=== PATIENT | male | born 1960 | race Caucasian/White ===

== ENCOUNTER → 2018-01-10 | Outpatient (CLI) | payer BC ==
[2018-01-10] MEDS: IOHEXOL 300 MG/ML 100ML VIAL. IV (11:47)
[2018-01-10 13:00] LABS: ISTAT CREATININE 0.7 mg/dL (0.7-1.3)
== END | disposition home or self-care (01) ==
LOC: KCIC CT 11:08
DX: H92.01 Otalgia, right ear (principal)
CPT/HCPCS: 82565; Q9967

== ENCOUNTER → 2021-03-27 | Outpatient (CLI) | payer BC ==
[~2021-03-27] MED LIST: BUPR300T92 PO; DEXL60CA2 PO; ESZO3TAB28 PO; FOLI0.8C PO; INSU100I13 SQ; INSU100V31 SQ; INSU100V6 SQ; LIPITOR80 MG PO; LORA0.5T96 PO; METF500T16 PO; QUET100T4 PO; QUET400T52 PO; SEMA0.25 SQ; TAMS0.4C97 PO
--- NOTE | 2021-03-27 15:47 | PDOC1 ---
INITIAL PAIN CONSULT DATE OF SERVICE: DOS: DATE: 03/27/21 TIME: 15:37 CHIEF COMPLAINT: Chief Complaint: Perineal pain HISTORY OF PRESENT ILLNESS: 60-year-old male presents history of pain since September 2020 following a perineal cystectomy which he describes as about the size of a golf ball. Patient reports that he has had pain ever since the excision and the pain is still present in the right side of the perineum between the anus and the scrotum. Patient describes it as sharp and stabbing constant changes during the day with activity worse with walking standing sitting wakes him from sleep occasionally does not affect his bowel bladder control or his ability to walk but is painful with walking and standing. Patient has had no current therapies for this he does take Motrin [id number] which does not seem to help much the pain is been getting worse with time gradually but still painful since the surgery in September 2020. Patient rates his disability rating from the pain 0- 10 10 being the worst is a 5 with family home responsibilities recreation and social activity occupational activities 7/behavior, 2 with self-care activities and 5 with life support activities. She did have MRI scan of the pelvis with and without contrast showing some postsurgical change in the right perineum but no evidence of soft tissue mass fluid collection or sinus tract at the postsurgical site. PAST MEDICAL HISTORY: PMH: Type 2 diabetes, hyperlipidemia, obstructive sleep apnea, gastroesophageal reflux, kidney stones, depression and anxiety PREVIOUS SURGERIES: Past Surgical Hx: Right cataract extraction, right rotator cuff repair, sinus surgery x2, left torn retina repair, right knee Fracture, bilateral heel surgeries, umbilical herniorrhaphy, tonsillectomy, perineal cyst excision September 2020 CURRENT MEDICATIONS: Current Meds: Active Scripts Medications Dose Route/Sig Max Daily Dose Days Date Category Dexilant (Dexlansoprazole) 60 Mg Cap.drLokeshmp 1 Cap PO DAILY 30 03/27/21 Reported Lipitor (Atorvastatin Calcium) 80 Mg Tablet 1 Tab PO DAILY 03/27/21 Reported Flomax (Tamsulosin Hcl) 0.4 Mg Cap.er.24h 1 Cap PO DAILY 03/27/21 Reported Lantus Solostar (Insulin Glargine,Hum.rec.anlog) 100 Unit/1 Ml Insuln.pen 30 Unit SQ QHS 03/27/21 Reported Humalog (Insulin Lispro) 100 Unit/1 Ml Vial 40 Unit SQ TID 03/27/21 Reported Ozempic (Semaglutide) 0.25 Mg/0.2 Ml Pen.injctr 0.25 Mg SQ WEEKLY 03/27/21 Reported Ativan (Lorazepam) 0.5 Mg Tablet 0.5 Mg PO DAILY PRN 03/27/21 Reported Folic Acid 0.8 Mg Capsule 1 Mg PO DAILY 03/27/21 Reported Bupropion Xl (Bupropion Hcl) 300 Mg Tab.er.24h 1 Tab PO DAILY 03/27/21 Reported Seroquel (Quetiapine Fumarate) 100 Mg Tablet 1 Tab PO QHS 03/27/21 Reported Quetiapine Fumarate ER (Quetiapine Fumarate) 400 Mg Tab.er.24h 150 Mg PO DAILY 03/27/21 Reported Lunesta (Eszopiclone) 3 Mg Tablet 1 Tab PO PRN QHS PRN MDD 1 Tablet(s) 30 03/27/21 Reported Metformin Hcl 500 Mg Tablet 500 Mg PO BIDWMEALS 01/10/18 Reported ALLERGIES; Allergies: Coded Allergies: Iodinated Contrast Media (Verified Allergy, Severe, 03/27/21) pt states he had a reaction with throat swelling during a scan but for an MRI he did not react with the contrast. 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 REVIEW OF SYSTEMS: ROS: Positive for those items mentioned in history of present illness, all systems are reviewed, otherwise negative ,and are complete full and well-documented on patient's chart. PHYSICAL EXAM: VS: Blood pressure is 157/85 pulse 99 respiration 16 temperature 98.2 F height is 5 foot 8 inches weight is 216 pounds PE: PHYSICAL EXAMINATION: GENERAL: The patient is awake, alert, oriented, appropriate, very pleasant in demeanor HEENT: Shows normocephalic, atraumatic. Extraocular movements are intact and symmetrical. Oral cavity: Mucous membranes moist and pink. Dentition is intact. NECK: Shows anterior throat supple without palpable lymphadenopathy noted. Swallow reflex symmetrical. CHEST: Shows normal on inspection. Breath sounds are clear bilaterally. HEART: Shows S1, S2 clear. No murmurs auscultated. ABDOMEN: Soft, nontender, nondistended, obese. No palpable organomegaly is noted. No rebound or guarding demonstrated. PERINEUM: Shows well-healed surgical scar to the right of midline at the base of the scrotum, tenderness with palpation directly fairly well demarcated proximally 2 cm diameter. No masses are palpated no radiation of pain is demonstrated. Left perineum shows no masses no tenderness no other abnormalities. BACK: Shows spine grossly in the midline. Normal-appearing cervical lordotic curvature. There is slightly increased thoracic kyphosis, some minor flattening of the lumbar lordotic curvature. EXTREMITIES: Lower extremities show deep tendon reflexes 2+ in the patellar and tendo calcaneus tendons. Motor exam is 5 on a scale of 5 with right dorsiflexion, extension, quadriceps and hamstring flexion and 5/5 on the left. Peripheral pulses are 2+ posterior tibial. No peripheral edema is noted bilaterally. SKIN: Shows warm and dry, good turgor. No edema. No sores, rashes or bruising throughout. IMPRESSION: Impression: 60-year-old male with history of postoperative pain following perineal cystectomy September 2020. Type 2 diabetes Hyperlipidemia Esophageal reflux Obstructive sleep apnea Depression anxiety Plan: Options were discussed with the patient including conservative medical management is physical therapies and interventional techniques. We discussed a peripheral nerve block at the incision site in the right perineum using description as well as anatomical models to describe the procedure. Patient understands and like to proceed. We will wait for preauthorization with patient's insurance provider for peripheral nerve block in the right perineum status post right peroneal cystectomy with chronic postoperative pain. Once preauthorization is obtained, will have patient return for procedure at that time. CRISTIANA WINTERS MD Mar 27, 2021 15:47
== END | disposition home or self-care (01) ==
LOC: PNCL 09:13
PROVIDERS: ATTEND Anesthesiology
DX: R10.2 Pelvic and perineal pain (principal); E11.9 Type 2 diabetes mellitus without complications; E78.5 Hyperlipidemia, unspecified; G47.33 Obstructive sleep apnea (adult) (pediatric); K21.9 Gastro-esophageal reflux disease without esophagitis; F41.9 Anxiety disorder, unspecified; F32.9 Major depressive disorder, single episode, unspecified; Z79.82 Long term (current) use of aspirin; Z79.84 Long term (current) use of oral hypoglycemic drugs; Z79.899 Other long term (current) drug therapy; Z98.890 Other specified postprocedural states; Z91.041 Radiographic dye allergy status
CPT/HCPCS: 99214; G0463

== ENCOUNTER → 2021-04-04 | Outpatient (CLI) | payer BC ==
[~2021-04-04] MED LIST changes: +BUPIVACAINE MPF 0.25% 10 ML VIAL. ONE; +PREG-9 PO; +methylPREDNISolone ACETATE 40 MG/ML VIAL. ONE
--- NOTE | 2021-04-04 13:57 | PDOC ---
Progress Note - Pain Clinic Date of Service: DOS: DATE: 04/04/21 TIME: 13:53 Diagnosis: Dx: Postop pain, chronic status post perineal cystectomy History or Present Illness: HPI: 60-year-old male returns for follow-up status post initial valuation preauthorization for peripheral nerve block at site of previous peritoneal cystectomy. Patient again has significant pain in the area of the surgical si te. Patient reports pain is now 5 on a scale of 10 is worse over the past week 5 on average 3 displeasing is a 5 today patient reports its a stabbing pain is aching as well is sharp with walking standing changing positions. Patient reports no new motor or sensory deficits no new changes also has history of trigeminal neuralgia on the left has been taking Lyrica for this and requests a refill for this which we will take care of for him today as well. Patient reports no new changes or other complaints Physical Exam: VS: Blood pressure goals 146/92 pulse 99 respirations 18 temperature is 98.2 F heig ht 5 feet 8 inches weight is 214 pounds PE: PHYSICAL EXAMINATION: GENERAL: The patient is awake, alert, oriented, appropriate, very pleasant in demeanor HEENT: Shows normocephalic, atraumatic. Extraocular movements are intact and s ymmetrical. ABDOMEN: Soft, nontender, nondistended. No palpable organomegaly is noted. Perineum: Shows well-healed surgical scar in the right of midline inferior to the scrotum and anterior to the rectum still very tender with palpation directly at the site itself without radiation. SKIN: Shows warm and dry, good turgor. No edema. No sores, rashes or bruising throughout. Procedure: Procedure: Options discussed with the patient. Patient's old chart was reviewed his his current medication regimen updated current review of systems updated today as well. We will proceed with peripheral nerve block at the site of the previous peroneal cystectomy in the right perineum. Risks discussed including but not limited to bleeding infection possibility of intravascular injection sequelae spread of local anesthetic and numbness side effects of steroid medication portals regarding pain control. Patient understands wished to proceed. Patient will return to clinic in approximate 4 weeks for follow-up, was counseled as return appointment activity level and side effects to be aware of. Medication Injected: Med Injected: Under sterile prep and drape patient in lithotomy position patient's right perineum was sterilely prepped and draped in the side of the surgical scar and focus of pain on palpation, using 25-gauge needle solution of 0.25% bupivacaine 5 cc and 40 mg Depo-Medrol was injected after negative aspiration to infiltrate the area about the scar subcutaneously. Patient tolerated the procedure well and had no complications. Condition at Discharge: Condition at Discharge: Condition at discharge stable, patient already procedure well and had no complications. CRISTIANA WINTERS MD Apr 04, 2021 13:57
--- NOTE | 2021-04-04 13:57 | PDOC4 ---
Procedure Note: Procedure Note: Patient was consented for peripheral nerve block and infiltration at the right perineum. Risk were discussed including but not limited to bleeding infection possibility of intravascular injection sequelae spread local anesthetic numbness side effects steroid medication portals regarding pain control. Patient underst ands wished to proceed. Under sterile prep and drape patient in lithotomy position patient's right perineum was sterilely prepped and draped in the side of the surgical scar and focus of pain on palpation, using 25-gauge needle solution of 0.25% bupivacaine 5 cc and 40 mg Depo-Medrol was injected after negative aspiration to infiltrate the area about the scar subcutaneously. Patient tolerated the procedure well and had no complications. CRISTIANA WINTERS MD Apr 04, 2021 13:57
== END | disposition home or self-care (01) ==
LOC: PNCL 13:03
PROVIDERS: ATTEND Anesthesiology
DX: G89.29 Other chronic pain (principal); Z79.4 Long term (current) use of insulin; Z79.899 Other long term (current) drug therapy; Z91.041 Radiographic dye allergy status
CPT/HCPCS: 64450; J1030; J3490

== ENCOUNTER → 2021-05-05 | Outpatient (CLI) | payer BC ==
[~2021-05-05] MED LIST changes: +GABA300C18 PO
--- NOTE | 2021-05-05 10:29 | PDOC ---
Progress Note - Pain Clinic Date of Service: DOS: DATE: 05/05/21 TIME: 10:23 Diagnosis: Dx: Chronic postoperative pain, right perineum status post perineal cystectomy History or Present Illness: HPI: 60-year-old male returns for follow-up status post local infiltration peripheral nerve block at the right peroneal cystectomy scar site. Patient reports better for several days following the injection but the pain returned fairly quickly in the right perineum worse with walking standing sitting for prolonged periods moving stretching climbing stairs most all activities. Patient reports it was better for several days with 0 doing distance walking with greater ease and comfort and work activities house located sitting for long periods still is not awakening from sleep at night most nights. Patient describes the pain is aching burning stabbing and constant in the right perineum at the site of previous c ystectomy. Patient rates pain is a 7 on scale 10 is worse over the past week for an average 3 at its least and is a 4 today. We had tried patient with Lyrica for his facial pain however it was causing some visual disturbances and he discontinued it. We discussed this further and will try gabapentin as a new medication for the patient he was given instructions as well as side effects beware of with the medication. Physical Exam: VS: Blood pressure is 130/91 pulse 97 respirations 18 temperature 98.2 F height is 5 feet 8 inches weight is 215 pounds PE: PHYSICAL EXAMINATION: GENERAL: The patient is awake, alert, oriented, appropriate, very pleasant in demeanor. HEENT: Shows normocephalic, atraumatic. Extraocular movements are intact and symmetrical. Oral cavity: Mucous membranes moist and pink. Dentition is intact. NECK: Shows anterior throat supple without palpable lymphadenopathy noted. Swallow reflex symmetrical. CHEST: Shows normal on inspection. Breath sounds are clear bilaterally, distant but no rales or rhonchi. HEART: Shows S1, S2 clear. No murmurs auscultated. ABDOMEN: Soft, nontender, nondistended, obese. No palpable organomegaly is noted. BACK: Shows spine grossly in the midline. Normal-appearing cervical lordotic curvature. There is slightly increased thoracic kyphosis, some minor flattening of the lumbar lordotic curvature. PERINEUM: Shows previous well-healed surgical scar in the right perineal region with significant tenderness with palpation even light palpation over the area of the scar but without significant radiation left side is nontender and normal in appearance. SKIN: Shows warm and dry, good turgor. No edema. No sores, rashes or bruising throughout. Procedure: Procedure: Options discussed with patient. Patient chart was reviewed as her current medication regimen updated current review of systems updated today as well. We will proceed with second peripheral nerve block today at the right perineum at site of previous cystectomy excision. Risk were discussed including but not limited to bleeding infection possibility of intravascular injection sequelae spread of local anesthetic and numbness side effects of steroid medication portals regarding pain control. Patient understands wished to proceed. Patient return to clinic in approximately 4 weeks for follow-up as scheduled. Also will add new medication gabapentin 300 mg 3 times daily patient was given instructions as well as side effects to be aware of with the medication. Medication Injected: Med Injected: Patient supine position in lithotomy position under sterile prep and drape right perineum sterilely prepped and draped in usual fashion. Using 25-gauge needle after negative aspiration site of the peritoneal cystectomy scar was infiltrated with a total of 5 cc 0.25% bupivacaine and 40 mg Depo-Medrol. Patient tolerated procedure well and had no complications. Condition at Discharge: Condition at Discharge: Condition at discharge stable, patient already the procedure well and had no complications. CRISTIANA WINTERS MD May 05, 2021 10:29
--- NOTE | 2021-05-05 10:30 | PDOC4 ---
Procedure Note: ICD 10 Code: ICD 10 Code: G8 9.18 G8 9.29 Procedure Note: Patient is consented for peripheral nerve infiltration right perineum. Risks are discussed including but not limited to, infection bleeding spread local anesthetic and numbness intravascular injection sequelae and poor results regarding pain control. Patient understands wished to proceed. Patient supine position in lithotomy position under sterile prep and drape right perineum sterilely prepped and draped in usual fashion. Using 25-gauge needle after negative aspiration site of the peritoneal cystectomy scar was infiltrated with a total of 5 cc 0.25% bupivacaine and 40 mg Depo-Medrol. Patient tolerated procedure well and had no complications. CRISTIANA WINTERS MD May 05, 2021 10:30
== END | disposition home or self-care (01) ==
LOC: PNCL 09:22
PROVIDERS: ATTEND Anesthesiology
DX: G89.18 Other acute postprocedural pain (principal); G89.29 Other chronic pain
CPT/HCPCS: 64450; J1030; J3490

== ENCOUNTER → 2021-06-07 | Outpatient (CLI) | payer BC ==
[~2021-06-07] MED LIST changes: +CHOL10004 PO; +IOHEXOL 180 MG/ML 10 ML VIAL. ONE; -methylPREDNISolone ACETATE 40 MG/ML VIAL. ONE; +methylPREDNISolone ACETATE 80 MG/ML VIAL. ONE
--- NOTE | 2021-06-07 09:59 | PDOC4 ---
Procedure Note: ICD 10 Code: ICD 10 Code: G8 9.18 Procedure Note: Patient was consented for right pudendal nerve block with fluoroscopic guidance. Risk were discussed including but not limited to bleeding infection possibility of intravascular injection sequelae spread of local anesthetic numbness side effects of steroid medication exposure fluoroscopy and poor results regarding pain control. Patient understands wished to proceed. Under sterile prep and drape patient in prone position using C-arm fluoroscopic guidance patient's right side pelvis was identified and with lateral angulation of the C arm tube the ischial spine was identified and area on the skin marked at the tip of the ischial spine on the right side. Using a 22-gauge 5 inch needle was advanced under direct fluoroscopic visualization to contact the med ial tip of the ischial spine. This time needle was withdrawn and angled slightly medial approximately 1 to 2 mm medial to the ischial spine and slightly superficial to it. Negative aspiration was noted contrast was injected 0.5 cc showing good local spread without washout or uptake. At this time solution containing 3 cc of 0.25% ropivacaine and 80 mg Depo-Medrol was then injected. Needle was withdrawn and sterile bandage was applied. Patient tolerated procedure well and had no complications. CRISTIANA WINTERS MD Jun 07, 2021 09:59
--- NOTE | 2021-06-07 09:59 | PDOC ---
Progress Note - Pain Clinic Date of Service: DOS: DATE: 06/07/21 TIME: 09:54 Diagnosis: Dx: Chronic postoperative pain status post perineal cystectomy right History or Present Illness: HPI: 60-year-old male returns for follow-up status post peripheral nerve block x2 right perineum. Patient reports no significant decrease in pain still significant pain in the right perineum itself site of previous cystectomy patient reports is worse with walking standing changing positions any type of activity essentially better with sitting or resting sitting for prolonged periods is much worse without moving, and able to change positions. Patient reports a 6 on a scale of 10 is worse over the past week for an average to its least is a 2 today patient was aching constant in the perineum on the right side as previously. Patient reports better with laying down and does not generally awaken her from sleep at night. Patient cries pain is aching and constant in the right perineum itself without specific radiation. Patient reports no bowel or bladder incontinence. Physical Exam: VS: Blood pressure 144/77 pulse 83 respirations 18 temperature 97.8 F height 5 feet 8 inches weight is 214 pounds PE: PHYSICAL EXAMINATION: GENERAL: The patient is awake, alert, oriented, appropriate, very pleasant in demeanor. HEENT: Shows normocephalic, atraumatic. Extraocular movements are intact and symmetrical. Oral cavity: Mucous membranes moist and pink. Dentition is intact. NECK: Shows anterior throat supple without palpable lymphadenopathy noted. Swallow reflex symmetrical. CHEST: Shows normal on inspection. Breath sounds are clear bilaterally. HEART: Shows S1, S2 clear. No murmurs auscultated. ABDOMEN: Soft, nontender, nondistended, obese. No palpable organomegaly is noted. Patient's perineum shows well-healed surgical scar on the right inferior aspect lateral to the inferior posterior scrotal origin. With palpation shows significant tenderness with even moderate to palpation but without radiation, left side is nontender. BACK: Shows spine grossly in the midline. Normal-appearing cervical lordotic curvature. There is slightly increased thoracic kyphosis, some minor flattening of the lumbar lordotic curvature. Lumbar paraspinous muscles show symmetrical on inspection, on palpation shows some moderate tenderness diffusely throughout the upper, middle and lower distribution of the paraspinous muscles, but without specific trigger points, without radiation of pain. The patient has good rotational motion of the lumbar spine, both laterally as well as extension and flexion without significant difficulty. No tenderness over the spinous processes, sacrum or sacroiliac regions. SKIN: Shows warm and dry, good turgor. No edema. No sores, rashes or bruising throughout. Procedure: Procedure: Options discussed with patient. Patient chart reviews his current medication regimen updated current review of systems updated today as well. We will proceed with a right pudendal nerve block today posterior approach with fluoroscopic guidance. Risk discussed including not limited to bleeding infection possibility of intravascular injection and sequelae spread of local anesthetic numbness side effects steroid medications post arthroscopy and portals rating pain control. Patient understands wished to proceed. Patient return to clinic in approximate 4 weeks for follow-up, was counseled as return appointment active level and side effects to be aware of. Medication Injected: Med Injected: Under sterile prep and drape patient in prone position using C-arm fluoroscopic guidance patient's right side pelvis was identified and with lateral angulation of the C arm tube the ischial spine was identified and area on the skin marked at the tip of the ischial spine on the right side. Using a 22-gauge 5 inch needle was advanced under direct fluoroscopic visualization to contact the medial tip of the ischial spine. This time needle was withdrawn and angled slightly medial approximately 1 to 2 mm medial to the ischial spine and slightly superficial to it. Negative aspiration was noted contrast was injected 0.5 cc showing good local spread without washout or uptake. At this time solution containing 3 cc of 0.25% ropivacaine and 80 mg Depo-Medrol was then injected. Needle was withdrawn and sterile bandage was applied. Patient tolerated procedure well and had no complications. Condition at Discharge: Condition at Discharge: Condition at discharge is stable, patient already procedure well and had no complications. CRISTIANA WINTERS MD Jun 07, 2021 09:59
== END | disposition home or self-care (01) ==
LOC: PNCL 08:59
PROVIDERS: ATTEND Anesthesiology
DX: G89.29 Other chronic pain (principal); Z79.4 Long term (current) use of insulin; Z79.899 Other long term (current) drug therapy; Z91.041 Radiographic dye allergy status
CPT/HCPCS: 64430; 77002; J1040; J3490; Q9965

== ENCOUNTER → 2021-07-10 | Outpatient (CLI) | payer BC ==
[~2021-07-10] MED LIST changes: +GABA-689 PO; +QUET150T2 PO
--- NOTE | 2021-07-10 09:20 | PDOC ---
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 Left trigeminal neuralgia History or Present Illness: HPI: 60-year-old male returns for follow-up status post right pudendal nerve block with no significant decrease in pain patient reports still significant pain in the right groin and perineal region patient reports new complaint and severity of increased pain in the left face as he has a diagnosis of left nausea which was doing better with gabapentin but is now fairly significant patient reports anywhere from a 5 to an 8 on scale 10 at its worst 3 to 4 days least and is a 5 today patient reports is burning and aching in the perineum as well as the gluteus also aching sharp pain in the left side of the face radiating in the perineal region as well as the buttock. Patient reports no loss of motor fun ction no side effects with medications. Patient reports he has had neurosurgical consultation regarding his trigeminal neuralgia in the past and a electric stimulator was discussed although patient was not interested in pursuing this at that time as he was doing fairly well with medication management however is now returned significantly. Physical Exam: VS: Blood pressure is 145/97 pulse 94 respirations 18 temperature 97.9 F weight is 216 pounds PE: PHYSICAL EXAMINATION: GENERAL: The patient is awake, alert, oriented, appropriate, very pleasant in demeanor HEENT: Shows normocephalic, atraumatic. Extraocular movements are intact and symmetrical. No increased lacrimation no erythema bilaterally. Oral cavity: Mucous membranes moist and pink. Dentition is intact. NECK: Shows anterior throat supple without palpable lymphadenopathy noted. Swallow reflex symmetrical. CHEST: Shows normal on inspection. Breath sounds are clear bilaterally, no rales rhonchi wheezes auscultated. HEART: Shows S1, S2 clear. No murmurs auscultated. ABDOMEN: Soft, nontender, nondistended, obese. No palpable organomegaly is noted. Patient's perineum shows a well-healed surgical scar in the right side of the perineum which is moderately tender with some mild allodynia and hyperesthesia in this region on the right only. BACK: Shows spine grossly in the midline. Normal-appearing cervical lordotic curvature. There is slightly increased thoracic kyphosis, some minor flattening of the lumbar lordotic curvature. Lumbar paraspinous muscles show symmetrical on inspection, on palpation shows some moderate tenderness diffusely throughout the upper, middle and lower distribution of the paraspinous muscles without specific trigger points, without radiation of pain. The patient has good rotational motion of the lumbar spine, both laterally as well as extension and flexion without significant difficulty. SKIN: Shows warm and dry, good turgor. No edema. No sores, rashes or bruising throughout. Procedure: Procedure: Options were discussed with the patient. Patient chart was reviewed his current medication regimen updated current review of systems updated today as well. We will proceed with a repeat right pudendal nerve block today with fluoroscopic guidance. Risk were discussed including but not limited to bleeding infection possibility of intravascular injection sequelae spread local anesthetic numbness side effects of steroid medication portals regarding pain control. Patient understands wished to proceed. Patient return to clinic in approximately 3 weeks for follow-up, was counseled return appointment, typical, and side effects to be aware of. Medication Injected: Med Injected: Under sterile prep and drape patient in supine position using C-arm fluoroscopic guidance patient's right ischial spine was identified with the oblique view with the C arm fluoroscopy. Using a 1% lidocaine the area above this was a anesthetized using a 22-gauge needle was then slowly advanced with direct fluoroscopic vision to contact the right ischial spine needle was withdrawn approximately 1 to 2 mm and placed medially 1 to 2mm with good palpable sensation of sacrotuberous ligament contrast was injected at this time after negative aspiration showing good local spread of the contrast at this site. Patient did have a brief paresthesia into the right perineum at this point. After negative aspiration once again solution containing 3 cc of 0.25% b upivacaine and 80 mg Depo-Medrol was then injected into the sacrotuberous ligament and pudendal nerve. Patient tolerated seizure well had no complications. Condition at Discharge: Condition at Discharge: Condition at discharge stable, patient already procedure well had no complications. CRISTIANA WINTERS MD Jul 10, 2021 09:20
--- NOTE | 2021-07-10 09:21 | PDOC4 ---
Procedure Note: ICD 10 Code: ICD 10 Code: G8 9.18 Procedure Note: Patient was consented for right pudendal nerve block with fluoroscopic guidance. Risk were discussed including but not limited to bleeding infection possibility of intravascular injection sequelae spread local anesthetic numbness side effects steroid medications post arthroscopy and portals regarding pain control. Patient understands wished to proceed. Under sterile prep and drape patient in supine position using C-arm fluoroscopic guidance patient's right ischial spine was identified with the oblique view with the C arm fluoroscopy. Using a 1% lidocaine the area above this was a anesthetized using a 22-gauge needle was then slowly advanced with direct fluoroscopic vision to contact the right ischial spine needle was withdrawn approximately 1 to 2 mm and placed medially 1 to 2mm with good palpable sensation of sacrotuberous ligament contrast was injected at this time after neg ative aspiration showing good local spread of the contrast at this site. Patient did have a brief paresthesia into the right perineum at this point. After negative aspiration once again solution containing 3 cc of 0.25% bupivacaine and 80 mg Depo-Medrol was then injected into the sacrotuberous ligament and pudendal nerve. Patient tolerated seizure well had no complications. CRISTIANA WINTERS MD Jul 10, 2021 09:21
== END | disposition home or self-care (01) ==
LOC: PNCL 08:30
PROVIDERS: ATTEND Anesthesiology
DX: G89.18 Other acute postprocedural pain (principal); G50.0 Trigeminal neuralgia; Z79.4 Long term (current) use of insulin; Z79.899 Other long term (current) drug therapy; Z91.041 Radiographic dye allergy status
CPT/HCPCS: 64430; 77002; J1040; J3490; Q9965

== ENCOUNTER → 2021-11-01 | Outpatient (CLI) | payer BC ==
[~2021-11-01] MED LIST changes: -BUPIVACAINE MPF 0.25% 10 ML VIAL. ONE; -IOHEXOL 180 MG/ML 10 ML VIAL. ONE; -methylPREDNISolone ACETATE 80 MG/ML VIAL. ONE
--- NOTE | 2021-11-01 09:15 | PDOC ---
Progress Note - Pain Clinic Date of Service: DOS: DATE: 11/01/21 TIME: 09:09 Diagnosis: Dx: Chronic postoperative pain status post right perineal cystectomy History or Present Illness: HPI: 61-year-old male returns for follow-up status post right to pudendal nerve block x2 and local infiltration peroneal peripheral nerve injection x2. Patient reports he is not received any significant reduction in pain with any of the injections that we performed a starting last March. Patient reports still significant pain in the perineum on the right side point of surgery from perineal cystectomy. Patient reports he is also recently seen a urologist and a colorectal surgeon neither 1 of which had any surgical helpful intuitive suggestions. Patient rates his pain is a 9 on scale 10 at its worst 7 on average 4 to [place] is a 7 today patient ports aching and sharp burning and stabbing can be constant severe with activity standing walking sitting generally better with resting or laying down generally does not awaken her from sleep at night. Patient is still taking gabapentin 3 times a day also nortriptyline 50 mg which helps him sleep but is not decreasing the pain significantly during the day. Patient is diabetic and is watching his blood glucose levels fairly closely and we encouraged him to continue with this as well to make a peripheral neuropathic pain worse. Patient would like to discuss other options today and we had discussed possible revision of the surgical scar for potential neuroma formation and excision of the neuroma if possible with a surgical revision at the original surgical site as the pain is fairly well localized and is fairly superficial on the skin but has been nonresponsive to peripheral nerve blocks as well as a pudendal nerve blocks. We discussed this further and will make surgical referral for general surgery regarding scar revision right sided perineal scar at site of previous perineal cystectomy. Physical Exam: VS: Blood pressure is 134/85 pulse 96 respirations 18 temperature 97.7 F height 5 feet 8 inches weight is 213 pounds. PE: PHYSICAL EXAMINATION: GENERAL: The patient is awake, alert, oriented, appropriate, very pleasant in demeanor HEENT: Shows normocephalic, atraumatic. Extraocular movements are intact and symmetrical. Oral cavity: Mucous membranes moist and pink. Dentition is intact. NECK: Shows anterior throat supple without palpable lymphadenopathy noted. Swallow reflex symmetrical. CHEST: Shows normal on inspection. Breath sounds are clear bilaterally, no rales or rhonchi. HEART: Shows S1, S2 clear. No murmurs auscultated. ABDOMEN: Soft, nontender, nondistended, obese. No palpable organomegaly is noted. PERINEUM: Right side perineum shows well-healed surgical scar in a sagittal disposition with out discoloration and with significant tenderness just lateral to the aspect of the perineal scar less tender from the medial aspect no palpable cysts or other abnormalities detected. BACK: Shows spine grossly in the midline. Normal-appearing cervical lordotic curvature. There is slightly increased thoracic kyphosis, some minor flattening of the lumbar lordotic curvature. SKIN: Shows warm and dry, good turgor. No edema. No sores, rashes or bruising throughout. Procedure: Procedure: Options discussed with patient. Patient chart was reviewed as his current medication regimen updated, current review of systems updated today as well. We will make surgical referral for consideration of revision patient is right peroneal scar in hopes of eliminating neuroma in the superficial tissues medial to the scar. Patient has seen the general surgeon previously and will make referral back when available. Medication Injected: Med Injected: None Condition at Discharge: Condition at Discharge: Condition at discharge is stable. CRISTIANA WINTERS MD Nov 01, 2021 09:15
== END | disposition home or self-care (01) ==
LOC: PNCL 08:40
PROVIDERS: ATTEND Anesthesiology
DX: G89.28 Other chronic postprocedural pain (principal); Z79.899 Other long term (current) drug therapy; Z91.041 Radiographic dye allergy status
CPT/HCPCS: 99212; G0463

== ENCOUNTER → 2022-01-26 | Outpatient (CLI) | payer BC ==
--- NOTE | 2022-01-26 08:39 | PDOC ---
Progress Note - Pain Clinic Date of Service: DOS: DATE: 01/26/22 TIME: 08:35 Diagnosis: Dx: Chronic postop pain status post right peroneal cystectomy History or Present Illness: HPI: 61-year-old male returns for follow-up status post peroneal peripheral nerve block as well as pudendal blocks x2 and recent surgical revision of patient's cystectomy scar in the right perineum. Patient reports the pain is still persistent has not changed even after the most recent surgery of revision of the scar and excess incision of the surrounding tissues patient reports still significant pain in the right perineum burning stabbing cramping aching unbearable at times worse with activity standing walking patient reports a 10 on scale 10 at most times it is a 10 today patient reports no loss of motor function but significant pain in the right perineum which is persistent despite multiple pudendal nerve blocks as well as a recent surgical revision of the scar in hopes to excise possible neuroma which was unsuccessful. Patient reports no loss of motor function but significant pain which is becoming more more debilitating and goes on. Patient reports no bowel or bladder incontinence or loss of motor function. Physical Exam: VS: Blood pressure 130/80 pulse 99 respiration 16 temperature 90.1 F height is 5 foot 8 inches weight is 215 pounds. PE: PHYSICAL EXAMINATION: GENERAL: The patient is awake, alert, oriented, appropriate, very pleasant in demeanor HEENT: Shows normocephalic, atraumatic. Extraocular movements are intact and symmetrical. Oral cavity: Mucous membranes moist and pink. Dentition is intact. NECK: Shows anterior throat supple without palpable lymphadenopathy noted. Swallow reflex symmetrical. CHEST: Shows normal on inspection. Breath sounds are clear bilaterally. HEART: Shows S1, S2 clear. No murmurs auscultated. ABDOMEN: Soft, nontender, nondistended. No palpable organomegaly is noted. BACK: Shows spine grossly in the midline. Normal-appearing cervical lordotic curvature. There is slightly increased thoracic kyphosis, some minor flattening of the lumbar lordotic curvature. Perineal region shows well-healed surgical scar in the right perineal region without erythema without drainage or excessive scar formation with significant tenderness medial and lateral to the scar itself. Patient shows no radiation of pain with moderate palpation. EXTREMITIES: Lower extremities show deep tendon reflexes 2+ in the patellar and tendo calcaneus tendons. Motor exam is 5 on a scale of 5 with right dorsiflexion, extension, quadriceps and hamstring flexion and 5/5 on the left. Peripheral pulses are 1+ posterior tibial. No peripheral edema is noted bilaterally. Lower extremities are warm and dry to touch, equal in color and appearance. SKIN: Shows warm and dry, good turgor. No edema. No sores, rashes or bruising throughout. Procedure: Procedure: Options were discussed with the patient. Patient's old chart was reviewed his current medication regimen updated current review of systems updated today as well. We discussed multiple options with patient as he has had multiple nerve b locks as well as topical anesthetic ointments and patches used without success as well as recent surgical revision without success. We discussed a spinal cord stimulator which may afford some significant decrease in pain. Patient would like to pursue this we will make arrangements with psychological evaluation first and then preauthorization for spinal cord stimulation for patient with chronic postoperative peroneal pain. Medication Injected: Med Injected: None Condition at Discharge: Condition at Discharge: Condition at discharge is stable. CRISTIANA WINTERS MD Jan 26, 2022 08:39
== END | disposition home or self-care (01) ==
LOC: PNCL 08:09
PROVIDERS: ATTEND Anesthesiology
DX: G89.28 Other chronic postprocedural pain (principal); Z79.84 Long term (current) use of oral hypoglycemic drugs; Z79.4 Long term (current) use of insulin; Z79.899 Other long term (current) drug therapy; Z98.890 Other specified postprocedural states; Z91.041 Radiographic dye allergy status
CPT/HCPCS: 99212; G0463

== ENCOUNTER → 2022-02-22 | Outpatient (CLI) | payer BC ==
[~2022-02-22] MED LIST changes: +ESCITALOPRAM OX10 MG PO; +LIDOCAINE 2% PF 5 ML VIAL. ONE
--- NOTE | 2022-02-22 14:55 | PDOC ---
Progress Note - Pain Clinic Date of Service: DOS: DATE: 02/22/22 TIME: 14:50 Diagnosis: Dx: Chronic postoperative pain status post right peroneal cystectomy History or Present Illness: HPI: 61-year-old male returns for follow-up status post right pudendal nerve block x3 as well as peripheral nerve block and revision of right peroneal cystectomy scar with general surgery all with no significant improvement in 6 pain in the perineum. Patient with significant neuropathic component to his pain burning stinging in the right perineum radiating to the medial superior aspect of the thigh worse with walking standing changing positions sitting wakes him from sleep occasionally but better with laying down patient reports is a 7 on scale 10 is worse over the past week for an average 1 its least is a 4 today. Patient was aching and stabbing radiating can be constant as most constantly. Patient reports no new motor or sensory deficits no new bowel or bladder incontinence. We discussed spinal cord stimulation and patient would like to proceed with that today as he is been qualified through psychiatric valuation as well as his insurance provider. Physical Exam: VS: Blood pressure is 144/91 pulse 98 respirations 18 temperature 98.5 F height 5 feet 8 inches weight 213 pounds. PE: PHYSICAL EXAMINATION: GENERAL: The patient is awake, alert, oriented, appropriate, very pleasant in demeanor HEENT: Shows normocephalic, atraumatic. Extraocular movements are intact and symmetrical. Oral cavity: Mucous membranes moist and pink. Dentition is intact. NECK: Shows anterior throat supple without palpable lymphadenopathy noted. Swallow reflex symmetrical. CHEST: Shows normal on inspection. Breath sounds are clear bilaterally. HEART: Shows S1, S2 clear. No murmurs auscultated. ABDOMEN: Soft, nontender, nondistended. No palpable organomegaly is noted. Patient's perineum shows a well-healed surgical scar in the right peritoneal space without erythema without significant swelling compared to the left but with significant tenderness even to light touch over the area of the surgical scar and surrounding the scar by about 1 cm in all directions. BACK: Shows spine grossly in the midline. Normal-appearing cervical lordotic curvature. There is slightly increased thoracic kyphosis, some minor flattening of the lumbar lordotic curvature. Lumbar paraspinous muscles show symmetrical on inspection, on palpation shows some moderate tenderness diffusely throughout the upper, middle and lower distribution of the paraspinous muscles, without specific trigger points, without radiation of pain. The patient has good rotational motion of the lumbar spine, both laterally as well as extension and flexion without significant difficulty. EXTREMITIES: Lower extremities show deep tendon reflexes 2+ in the patellar and tendo calcaneus tendons. Motor exam is 5 on a scale of 5 with right dorsifle xion, extension, quadriceps and hamstring flexion and 5/5 on the left. Peripheral pulses are 1+ posterior tibial. No peripheral edema is noted bilaterally. Lower extremities are warm and dry to touch, equal in color and appearance. Tattooing again noted bilaterally. SKIN: Shows warm and dry, good turgor. No edema. No sores, rashes or bruising throughout. Procedure: Procedure: Options were discussed with the patient. Patient's old chart was reviewed his current medication regimen updated current review of systems updated today as well. We will proceed with spinal cord stimulator temporary leads placement x2 with fluoroscopic guidance. Risks were discussed including but not limited to: Bleeding, infection, possibility of epidural hematoma and subsequent neurological compromise, dural puncture, headaches, spinal cord and/or nerve damage, and poor results regarding pain control. Patient understands and wished to proceed. Patient return to clinic in 1 week for reevaluation and removal of temporary stimulator leads. Medication Injected: Med Injected: Under sterile prep and drape patient in prone position using C-arm fluoroscopic guidance patient's lumbar spine was identified and vertebral levels were counted did put external marker on the T8 level. This time the lumbar spine was revisualized and using 1% lidocaine, the area over the L3 4 level was anesthetized and then using a 14-gauge Caspertead needle with stylette was entered to the epidural space at the L1 -2 level using a paramedian approach to the right with preservative-free normal saline [id number] technique aspiration was noted to be negative and using direct fluoroscopy visualization spinal cord stimulator lead was then advanced without significant resistance in the midline and confirmed posterior with both AP and lateral views, and advanced to the superior endplate of the T8 vertebral level superimposed with the superior spinal cord stimulator electrode lead. Fluoroscopy was used in a lateral view to verify posterior placement in the epidural space at this point as well. At this time a second lead was then introduced in similar fashion at the L 3-4 level and inserted and in the epidural space at the L1-2 level once again with preservative-free normal saline [id number] technique. Aspiration was again noted to be negative and using direct visualization with fluoroscopy second lumbar spinal cord stimulator lead was advanced without significant resistance in the midline with the superior electrode superimposed over the superior endplate of the T9 vertebral body. Lateral visualization was again confirmed with placement of the stimulator in the posterior epidural space. At this time the needles and stylette were removed with intermittent fluoroscopic visualization maintaining that the leads had not moved during this process and this was confirmed. This time 1% lidocaine was used to anesthetize the skin next to the insertion sites of the stimulator wires and using a 2-0 shana k were then sutured in place. Mastisol and Tegaderm was then applied as well as reinforcing tape and gauze. Patient was transferred to the recovery area under his own power walking without difficulty and had no immediate complications from the procedure. Stimulation was then carried out with [facility] representatives. Patient will return to the clinic in approximately 1 week for removal of the temporary leads and reassessment of the patient's pain level. Condition at Discharge: Condition at Discharge: Condition at discharge is stable, patient tolerated the procedure well and had no complications. CRISTIANA WINTERS MD February 22, 2022 14:54
== END | disposition home or self-care (01) ==
LOC: PNCL 13:22
PROVIDERS: ATTEND Anesthesiology
DX: G89.18 Other acute postprocedural pain (principal); Z79.899 Other long term (current) drug therapy; Z98.890 Other specified postprocedural states
CPT/HCPCS: 63650; C1897

== ENCOUNTER → 2022-03-01 | Outpatient (CLI) | payer BC ==
[~2022-03-01] MED LIST changes: -LIDOCAINE 2% PF 5 ML VIAL. ONE
--- NOTE | 2022-03-01 14:20 | PDOC ---
Progress Note - Pain Clinic Date of Service: DOS: DATE: 03/01/22 TIME: 14:17 Diagnosis: Dx: Postop chronic pain status post right peroneal cystectomy History or Present Illness: HPI: 61-year-old male returns in follow-up status post spinal cord stimulator temporary lead placement 1 week ago. Patient reports 80 to 90% improvement with the stimulator lead trial. Patient reports he has been increase his activity to greater distance walking doing household activities sitting for prolonged periods with greater ease and comfort walking with greater ease sleeping better at night patient reports he is very pleased with his progress rates his pain is a 6 on scale 10 is worse over the past week 2 on average 1 at its least is a 1 today. Patient grabs an aching pain in the right perineum significantly reduced with the stimulation from spinal cord stimulator. Patient reports no new motor or sensory deficits no complaints very pleased with his progress at this time. Physical Exam: VS: Blood pressure is 140/90 pulse 74 respirations 18 temperature 98.3 F height is 5 foot 8 inches weight is 215 pounds. PE: PHYSICAL EXAMINATION: GENERAL: The patient is awake, alert, oriented, appropriate, very pleasant in demeanor HEENT: Shows normocephalic, atraumatic. Extraocular movements are intact and symmetrical. Oral cavity: Mucous membranes moist and pink. Dentition is intact. NECK: Shows anterior throat supple without palpable lymphadenopathy noted. Swallow reflex symmetrical. CHEST: Shows normal on inspection. Breath sounds are clear bilaterally. HEART: Shows S1, S2 clear. No murmurs auscultated. ABDOMEN: Soft, nontender, nondistended. No palpable organomegaly is noted. BACK: Shows spine grossly in the midline. Normal-appearing cervical lordotic curvature. Medical stimulator leads were removed under sterile prep and drape tips intact site clean dry no erythema no tenderness no drainage. Procedure: Procedure: Options were discussed with patient. Patient's old chart was reviewed his current medication regimen updated current review of systems updated today as well. We will remove spinal cord stimulator leads x2 with tips intact sites clean and dry without erythema without tenderness without drainage. Patient will follow-up for permanent stimulator system placement. Medication Injected: Med Injected: None Condition at Discharge: Condition at Discharge: Condition at discharge is stable. CRISTIANA WINTERS MD March 01, 2022 14:20
== END | disposition home or self-care (01) ==
LOC: PNCL 13:24
PROVIDERS: ATTEND Anesthesiology
DX: G89.29 Other chronic pain (principal); Z79.4 Long term (current) use of insulin; Z79.899 Other long term (current) drug therapy; Z91.041 Radiographic dye allergy status
CPT/HCPCS: 99212; G0463